=== PATIENT | male | born 1990 | race Two or more races ===

== ENCOUNTER 2024-01-11 05:33 | Emergency (ER) | payer MEDICAID, OTHER ==
[~2024-01-11] VITALS: Ht 170.2 cm; Wt 122.5 kg
[2024-01-11] MEDS: HYDROcodone-ACET 5/325MG TAB PO ONE (08:41)
[2024-01-11 09:39] VITALS: BP 109/76; PULSE 59; RESP 16; TEMP 97.7; O2SAT 98
[2024-01-11] MEDS ORDERED: IBU600T PO (10:01)
== END 2024-01-11 10:00 | disposition home or self-care (01) ==
LOC: ER 05:33
DX: S63.502A Unspecified sprain of left wrist, initial encounter (principal); F17.290 Nicotine dependence, other tobacco product, uncomplicated; W18.39XA Other fall on same level, initial encounter; Y93.89 Activity, other specified; Y92.89 Other specified places as the place of occurrence of the external cause; Y99.8 Other external cause status
CPT/HCPCS: 73100